=== PATIENT | female | born 1965 | race Caucasian/White ===

== ENCOUNTER 2016-08-30 21:36 | Emergency (ER) | payer OTHER, MEDICAID ==
[~2016-08-30] VITALS: Ht 175.3 cm; Wt 93.9 kg
[~2016-08-30 21:36] MED LIST: CONSTIPATION MED; MS CONTIN60 MG PO; PERCOCET1 TA2 PO; TUMS500 MG
[2016-08-30 23:08] LABS: BASOPHIL % 0.4 % (0-2); RED CELL DISTRIBUTION WIDTH 13.1 % (11.5-14.5)
[2016-08-30 23:11] LABS: PLATELET COUNT 417 x10^3mcL (130-400)
[2016-08-30 23:20] LABS: ALKALINE PHOSPHATASE 131 U/L (46-116); ALT/SGPT 31 U/L (14-59); AMYLASE 25 U/L (25-115); AST/SGOT 23 U/L (15-37); BILIRUBIN TOTAL 0.2 mg/dL (0.20-1.00); CARBON DIOXIDE 28.6 mmol/L (21-32); CHLORIDE SERUM 102 mmol/L (98-107); CREATININE SERUM 0.8 mg/dL (0.6-1.0); GFR1 > 60 mL/min; GLUCOSE SERUM 92 mg/dL (74-106); LIPASE 91 IU/L (73-393); POTASSIUM SERUM 3.9 mmol/L (3.5-5.1); SODIUM SERUM 141 mmol/L (136-145); TOTAL PROTEIN, SERUM 7.4 g/dL (6.4-8.2)
[2016-08-30 23:21] LABS: ALBUMIN 3.2 g/dL (3.4-5.0)
[2016-08-31 02:14] VITALS: BP 106/67
== END 2016-08-31 02:14 | disposition home or self-care (01) ==
LOC: ED 21:36
PROVIDERS: Emergency Medicine
DX: G43.909 Migraine, unspecified, not intractable, without status migrainosus (principal); J32.3 Chronic sphenoidal sinusitis; J45.909 Unspecified asthma, uncomplicated; Z88.0 Allergy status to penicillin; Z88.5 Allergy status to narcotic agent; Z88.8 Allergy status to other drugs, medicaments and biological substances; Z88.1 Allergy status to other antibiotic agents; Z79.899 Other long term (current) drug therapy
CPT/HCPCS: 83880; J1200; J1885; J1956; J2765; J7030

== ENCOUNTER 2016-12-01 15:09 | Emergency (ER) | payer OTHER, MEDICAID ==
[2016-12-01 17:53] VITALS: BP 133/99
== END 2016-12-01 17:53 | disposition home or self-care (01) ==
LOC: ED 15:09
DX: M54.5 Low back pain (principal); J45.909 Unspecified asthma, uncomplicated; F32.1 Major depressive disorder, single episode, moderate; Z88.0 Allergy status to penicillin; Z88.5 Allergy status to narcotic agent; Z88.1 Allergy status to other antibiotic agents
CPT/HCPCS: 20552; J2001; J3301